=== PATIENT | male | born 1955 | race Caucasian/White ===

== ENCOUNTER → 2016-11-19 | Outpatient (CLI) | payer BC | END | disposition home or self-care (01) | LOC: C.LAB1850 08:26 | PROVIDERS: ATTEND Physician Assistant | DX: R74.0 Nonspecific elevation of levels of transaminase and lactic acid dehydrogenase [LDH] (principal) ==

== ENCOUNTER → 2017-05-08 | Outpatient (CLI) | payer OTHER ==
[2017-05-08 17:52] LABS: ALBUMIN 4.1 gm/dl (3.4-5.0); ALT/SGPT 39 U/L (12-78); BLOOD UREA NITROGEN 18 mg/dl (7-18); CALCIUM 9.3 mg/dl (8.5-10.1); CARBON DIOXIDE 28 mmol/L (21-32); CHOLESTEROL 251 mg/dl (0-200); CREATININE 1.05 mg/dl (0.60-1.40); GLUCOSE 99 mg/dl (70-99); POTASSIUM 3.8 mmol/L (3.5-5.1); SODIUM 139 mmol/L (136-145)
[2017-05-08 17:54] LABS: ALKALINE PHOSPHATASE 52 U/L (45-117); AST/SGOT 28 U/L (15-37); LDL CHOLESTEROL CALCULATED 158 mg/dl; TOTAL PROTEIN 7.8 gm/dl (6.4-8.2)
== END | disposition home or self-care (01) ==
LOC: C.LAB1850 16:42
PROVIDERS: ATTEND Internal Medicine
DX: E78.5 Hyperlipidemia, unspecified (principal)

== ENCOUNTER → 2017-05-25 | Outpatient (CLI) | payer OTHER ==
[2017-05-25 09:54] LABS: TOTAL PROTEIN 7.4 gm/dl (6.4-8.2)
== END | disposition home or self-care (01) ==
LOC: C.LAB1850 08:15
PROVIDERS: ATTEND Internal Medicine
DX: E78.5 Hyperlipidemia, unspecified (principal)

== ENCOUNTER → 2017-06-10 | Outpatient (CLI) | payer OTHER ==
[2017-06-10 11:05] LABS: BLOOD UREA NITROGEN 14 mg/dl (7-18); CREATININE 1.06 mg/dl (0.60-1.40)
== END | disposition home or self-care (01) ==
LOC: C.LAB1850 09:51
PROVIDERS: ATTEND Physician Assistant
DX: H90.41 Sensorineural hearing loss, unilateral, right ear, with unrestricted hearing on the contralateral side (principal)

== ENCOUNTER → 2017-06-12 | Outpatient (CLI) | payer OTHER ==
[~2017-06-12] MED LIST: GADAVIST IV PRN
--- NOTE | 2017-06-12 08:36 | DIAGNOSTIC IMAGING REPORT ---
BRAIN COMBO FOR IAC CLINICAL HISTORY: H90.41 Right asymmetrical SNHLPatient has right greater than lef dizziness. Mental status change. TECHNIQUE: Multi axial MRI acquisition pre and post gadolinium enhancement COMPARISON STUDY: None FINDINGS: Intensely enhancing soft tissue mass measuring 2.0 x 2.2 x 1.5 cm right CP angle. This extends into the right internal auditory canal or originates from that structure. Extension into the right internal auditory canal is 8 mm. This enhances in a generally uniform fashion. There is localized mass effect upon the right mid to upper and right anterior cerebellum. There is no significant vasogenic edema. Diagnostic considerations include acoustic neuroma, versus a meningioma. Signal characteristics the remainder of the brain indicate minimal chronic small vessel change of the periventricular deep matter regions. Ventricular system is midline with no displacement. The left internal auditory canals unremarkable. Structures the sella and parasellar region are unremarkable. No additional enhancing process is seen. IMPRESSION: 1. Mass originating from and/or extending to the right internal auditory canal. 2. This measures 2.0 x 2.2 x 1.5 cm. 3. 8 mm extension into the internal auditory canal with mild expansion of the internal auditory canal diameter. 4. Diagnostic considerations include acoustic neuroma versus meningioma. 5. Local mass effect upon the right middle and anterior right cerebellum with no evidence for reactive or vasogenic edema. The above report was generated using voice recognition software. It may contain grammatical, syntax or spelling errors. Electronically signed by: Martínez Hernandez M.D. 06/12/2017 8:34 AM Dictated Date/Time: 06/12/2017 8:28 AM
== END | disposition home or self-care (01) ==
LOC: C.MRIBC 07:30
PROVIDERS: ATTEND Physician Assistant
DX: H90.41 Sensorineural hearing loss, unilateral, right ear, with unrestricted hearing on the contralateral side (principal); H93.8X1 Other specified disorders of right ear